=== PATIENT | female | born 1940 | race Caucasian/White ===

== ENCOUNTER → 2016-11-27 15:42 | Outpatient (CLI) | payer OTHER | END | disposition home or self-care (01) | LOC: D.CT 15:42 | DX: J18.9 Pneumonia, unspecified organism (principal) ==

== ENCOUNTER → 2017-08-01 09:21 | Outpatient (CLI) | payer MEDICARE ==
--- NOTE | ~2017-08-01 | EC ---
PATIENT:GIOVANNY ROGERS DATE OF SERVICE: 08/01/17 SEX: F MEDICAL RECORD: [id number] DATE OF : 38 [facility] AGE OF PATIENT: 77 ADMISSION DATE: 08/01/17 REFERRING PHYSICIAN: INTERPRETING PHYSICIAN: JAMAR MCMAHON MD ECHOCARDIOGRAM REPORT ECHO CHARGES 4 ECHO COMPLETE CLINICAL DIAGNOSIS: HTN/CAROTID BRUIT ECHOCARDIOGRAPHIC MEASUREMENTS (adult normal given) AC root (d.<3.7cm) 4.1 cm LV Septum d (<1.2 cm> 1.9 cm Valve Excursion 1.3 cm LV Septum (systole) 2.0 cm Left Atria (s.<4.0cm> 3.9 cm LVPW d(<1.2cm) 1.8 cm RV (d.<2.3cm) 3.3 cm LVPW (sytole) 2.0 cm LV diastole(<5.6CM) 5.0 cm MV E-F(>70mm/sec) cm LV systole 2.9 cm LVOT Diameter 1.3 cm MV exc.(>10mm) 1.4 cm Est.ejection fraction (50-75%) % Pericardial Effusion N DOPPLER: LVIT cm/sec A 112 cm/sec E 69.0 cm/sec LA cm/sec RVSP 50 mmHg LVOT 133 cm/sec AOP1/2T m/s Asc. Ao 160 cm/sec RVOT 120 cm/sec RA cm/sec PA 161 cm/sec AV Gradient Peak 10.28mmHg AV Mean 5.53 mmHg AV Area 1.2 cm MV Gradient Peak 6.36 mmHg MV Mean 1.42 mmHg MV Area cm COMMENTS: Chief Pilot: Willian FAY Party Director: 2 Dr. Nunn TAPE# PACS DATE OF SERVICE: 08/01/2017 Adequate 2-D echo, color flow and spectral Doppler, and M-mode. LVH is present. LV internal dimensions are normal. Wall motion is normal. EF greater than or equal to 55%. Aortic valve is tricuspid. No evidence of stenosis by Doppler interrogation. The left atrium is normal at 3.9 cm. Mitral valve shows no prolapse. Trace MR. Right-sided chamber is normal. Mild TR. Incidental note is made of moderate air band in RV apex of no clinical significance. ECHOCARDIOGRAM REPORT [id number] GIOVANNY ROGERS TRANSINT:[id number] Voice Confirmation ID: [id number] DOCUMENT ID: [id number] JAMAR MCMAHON MD at 1030 CC: [id number] DICTATION DATE: 08/01/17 164 HYDRAULIC PRESS IN OPERATOR: 08/01/17 2258 DEP CLI 08/01/17 [place] [id number] [place] [id number]
== END | disposition home or self-care (01) ==
LOC: D.ECHO 09:21
DX: I65.23 Occlusion and stenosis of bilateral carotid arteries (principal); I10 Essential (primary) hypertension

== ENCOUNTER 2018-08-28 08:55 | Outpatient (CLI) | payer MEDICARE ==
[~2018-08-28] VITALS: Ht 162.6 cm; Wt 71.4 kg
--- NOTE | ~2018-08-28 | HEMODYNAMI ---
PATIENT:GIOVANNY ROGERS MEDICAL RECORD: [id number] : 38 LOCATION:[facility] ADMISSION DATE: 08/28/18 Generatedon:08/28/201812:16 Patient name: GIOVANNY ROGERS Patient #: [id number] SSN: : 1940 Date of study: 08/28/2018 Page: Of Hemodynamic Procedure Report Patient Data Patient Demographics Procedure consent was obtained First Name: GIOVANNY Gender: Female Last Name: SUE : 1940 [facility] Initial: L Age: 78 year(s) Patient #: [id number] Race: Additional ID: [id number] Contact details [address]: [address] [place] [address] rd State: [place] City: [place] Zip code: [address] Past Medical History Allergies: No known allergies Admission Admission Data Admission Date: 08/28/2018 Admission Time: 8:55 Lab Results Lab Result Date: 08/28/2018 Lab Result Time: 0:00 Biochemistry Name Units Result Min Max BUN mg/dl 23 --(----)-* 7 18 Creatinine mg/dl 1.3 --(---*)-- 0.6 1.3 CBC Name Units Result Min Max Hemoglobin g/dl 13.3 -*(----)-- 13.5 17.5 Procedure Procedure Types Cath Procedure Diagnostic Procedure [facility] w/Coronaries PCI Procedure Coronary Stent Coronary Stent Initial Coronary Stent Additional Procedure Description Procedure Date Procedure Date: 08/28/2018 Procedure Start Time: 11:52 Procedure End Time: 12:16 Procedure Staff Name Function Alejandro Alvarenga MD Performing Physician David Amaya RT Monitor Yesy Bowen RT Scrub Helio Ojeda RN Nurse Procedure Data Cath Procedure Fluoroscopy Diagnostic fluoroscopy Total fluoroscopy Time: 7.6 time: 7.6 min min Diagnostic fluoroscopy Total fluoroscopy dose: 905 dose: 905 mGy mGy Contrast Material Contrast Material Type Amount (ml) Isovue 300 87 Entry Location Entry Primary Successful Side Size Upsize Upsize Entry Closure Anders ccessful Closure Location (Fr) 1 (Fr) 2 (Fr) Remarks Device Remarks Radial Right 6 Fr Mechanical artery Short Compression Estimated blood loss: 15 ml Diagnostic catheters Device Type Used For End Catheter Placement DIAGNOSTIC Richton 110cm 5 Procedure Fr catheter ([id number]) Procedure Medications Medication Administration Route Dosage 0.9% NaCl I.V. 100 ml/hr Oxygen etCO2 Nasal cannula 2 l/min Heparin Flush Bag added to field 2 bags (1000units/500ml NS) Lidocaine 2% added to field 20 Radial Cocktail added to field (Verapomil 2mg/Nitro 400mcg/Heparin 1500units) Versed I.V. 1 mg Fentanyl I.V. 25 mcg Radial Cocktail I.A. 1 syringe (Verapomil 2mg/Nitro 400mcg/Heparin 1500units) Fentanyl I.V. 25 mcg Heparin Bolus I.V. 4000 units Hemodynamics Rest HGB: 13.3 (g/dl) Heart Rate: 54 (bpm) Pressure Samples Time Site Value (mmHg) Purpose Heart Use Rate(bpm) 11:56 LV 59/0,-3 Snapshot 82 Snapshots Pre Cath Intra NCS Post Cath Vital Signs Time Heart Resp SPO2 etCO2 NIBP Rhythm Pain Sedation Rate (ipm) (%) (mmHg) (mmHg) Status Level (bpm) 11:38:41 54 20 92 0 132/74(90) NSR 0 (11) 10(A) , No pain 11:42:51 53 24 95 25.5 127/68(92) NSR 0 (11) 10(A) , No pain 11:47:01 52 18 96 16.5 121/64(93) NSR 0 (11) 10(A) , No pain 11:51:11 54 13 94 16.5 139/60(94) NSR 0 (11) 10(A) , No pain 11:55:27 60 16 94 27 101/58(76) NSR 0 (11) 10(A) , No pain 11:59:29 61 23 92 31.5 106/61(80) NSR 0 (11) 10(A) , No pain 12:03:32 58 13 93 24.7 119/56(75) NSR 0 (11) 9(A) , No pain 12:07:40 58 13 94 29.3 115/56(82) NSR 0 (11) 9(A) , No pain 12:12:06 59 16 94 33.8 124/60(82) NSR 0 (11) 9(A) , No pain Medications Time Medication Route Dose Verified Delivered Reason Not es Effectiveness by by 11:42:37 0.9% NaCl I.V. 100 Helio Helio Per physician ml/hr Rusty Ojeda RN RN 11:42:46 Oxygen etCO2 2 l/min Helio Helio for low 02 sats Nasal Rusty Ojeda cannula RN RN 11:42:56 Heparin Flush added 2 bags Helio Helio used for Bag to Lorjorge Ojeda procedure (1000units/500ml RN RN NS) 11:43:05 Lidocaine 2% added 20ml Helio Helio used for to vial Lorigan Lorjorge procedure field ROCHA RN 11:43:19 Radial Cocktail added Helio Helio used for (Verapomil to Lorigan Rusty procedure 2mg/Nitro field AJ ROCHA 400mcg/Heparin 1500units) 11:46:08 Versed I.V. 1 mg Helio Helio for sedation Rusty Ojeda RN RN 11:46:16 Fentanyl I.V. 25 mcg Helio Helio for sedation Rusty Ojeda RN RN 11:54:25 Radial Cocktail I.A. 1 Helio Alejandro for (Verapomil syringe Rusty Alvarenga MD vasodilation 2mg/Nitro RN 400mcg/Heparin 1500units) 11:54:57 Fentanyl I.V. 25 mcg Helio Helio for sedation Rusty Ojeda RN RN 12:01:33 Heparin Bolus I.V. 4000 Helio Helio for units Rusty Ojeda anticoagulation AJ bearing inspector Log Time Note 11:10:14 Informed consent obtained and on chart 11:10:27 Diagnostic Cath Status : Elective 11:10:55 Helio Ojeda RN sent for patient. Start room use. 11:10:58 Time tracking: Regular hours (M-F 7:00 - 5:00) 11:11:03 Plan of Care:Hemodynamics will remain stable., Cardiac rhythm will remain stable., Comfort level will be maintained., Respiratory function will remain adequate., Patient/ family verbilizes understanding of procedure., Procedure tolerated without complication., Recovers from procedure without complications.. 11:16:15 Patient received from Pre/Post Procedure Room to [facility] 2 Alert and oriented. Tansferred to table in Supine position. 11:16:17 Warm blankets applied, and sonny hugger turned on for patient comfort. 11:16:17 Correct patient and procedure confirmed by team. 11:25:57 ECG and BP/O2 sat monitors applied to patient. 11:25:58 Vital chart was started 11:25:59 Baseline sample Acquired. 11:26:08 Rhythm: sinus bradycardia 11:26:09 Full Disclosure recording started 11::19 H&P Date Dictated: 08/28/2018 New H&P dictated by physician.. 11:26:20 Pre-procedure instructions explained to patient. 11:26:21 Pre-op teaching completed and patient verbalized understanding. 11:26:23 Family in waiting room. 11:26:27 Patient NPO since Midnight. 11:26:40 Patient allergic to No known allergies 11:26:46 Is patient on blood thinner?Yes 11:26:49 ACC The patient was administered the following blood thiners within the last 24 hours: ACCPlavix 11:29:25 Patient diabetic? No. 11:29:28 Patient not . Patient is over age 55. 11:29:29 ----Pre-sedation anethsthesia assessment.---- 11:29:31 Previous problem with sedation/anesthesia? No ? 11:29:33 Snore? Yes 11:29:34 Sleep apnea? No 11:29:36 Deviated septum? No 11:29:37 Opens mouth fully? Yes 11:29:38 Sticks out tongue? Yes 11:29:59 Airway obstruction? No HAS ASTHMA 11:30:31 Dentures? Yes PARTIAL IS IN 11:30:37 Pre procedure: right dorsailis pedis pulse 2+ Normal; easily identifiable; not easily obliterated 11:31:03 Patient pain scale 0/10 ?. 11:31:15 IV left hand D/C'd due to infiltration. 11:33:42 Lab Result : BUN 23 mg/dl 11:33:42 Lab Result : Creatinine 1.3 mg/dl 11:33:42 Lab Result : Hemoglobin 13.3 g/dl 11:33:47 Lab results completed and on chart. 11:33:53 Right Radial & Right Groin area was prepped with chlora-prep and aped in sterile fashion 11:33:55 Alarms reviewed by R. N. 11:33:56 Sharps counted by scrub and verified by R.N. 11:36:41 IV started by Helio Ojeda RN inleft hand with a 22 gauge IV catheter with 0.9% NaCl at KVO. 11:41:34 Zero performed for pressure channel P1 11:42:37 0.9% NaCl 100 ml/hr I.V. was administered by Helio Ojeda RN; Per physician; 11:42:46 Oxygen 2 l/min etCO2 Nasal cannula was administered by Helio Ojeda RN; for low 02 sats; 11:42:56 Heparin Flush Bag (1000units/500ml NS) 2 bags added to field was administered by Helio Ojeda RN; used for procedure; 11:43:05 Lidocaine 2% 20ml vial added to field was administered by Helio Ojeda RN; used for procedure; 11:43:19 Radial Cocktail (Verapomil 2mg/Nitro 400mcg/Heparin 1500units) added to field was administered by Helio Ojeda RN; used for procedure; 11:44:01 Use device set Radial Dx or PCI 11:44:03 ACIST Syringe (35577) opened to sterile field. 11:44:03 Medline Cath Pack ([id number]) opened to sterile field. 11:44:04 Bag Decanter (2002) opened to sterile field. 11:44:04 DIAGNOSTIC WIRE .035 260cm J wire (979499) opened to sterile field. 11:44:05 ACIST Hand Control (44033) opened to sterile field. 11:44:06 ACIST Manifold (28067) opened to sterile field. 11:44:07 Tegaderm 4 x 4 (1626W) opened to sterile field. 11:44:07 MBrace Wrist Support ([id number]) opened to sterile field. 11:44:09 SHEATH 6FR Slender (47-1060) opened to sterile field. 11:45:20 Physician arrived 11:45:20 --------ALL STOP TIME OUT------ 11:45:21 Final Timeout: patient, procedure, and site verified with staff and physician. All members of the team are in agreement. 11:45:24 Right Radial & Right Groin site verified by team. 11:45:32 Maximum allowable Isovue 300 dose 300ml. Physician notified. (300ml for normal creatinines. For patients with creatinine of 1.7 or higher multiply weight(kg) x 5 divided by creatinine.) 11:45:38 Fire Safety Assessment: A--An alcohol-based skin anteseptic being used preoperatively., C--Open oxygen or nitrous oxide is being used., D--An ESU, laser, or fiber-optic light is being used. 11:45:45 Physical assessment completed. ASA score P 2 - A patient with mild systemic disease as per Alejandro Alvarenga MD. 11:45:51 Sedation plan: IV Moderate Sedation Medication:Versed, Fentanyl 11:46:08 Versed 1 mg I.V. was administered by Helio Ojeda RN; for sedation; 11:46:16 Fentanyl 25 mcg I.V. was administered by Helio Ojeda RN; for sedation; 11:52:14 Procedure started. 11:52:20 Local anesthetic to right radial artery with Lidocaine 2% by Alejandro Alvarenga MD.INITIAL ACCESS ONLY 11:53:16 A 6 Fr Short sheath was inserted into the Right Radial artery 11:53:25 A DIAGNOSTIC Richton 110cm 5 Fr catheter (062903) was advanced over the wire and used for Procedure. 11:54:25 Radial Cocktail (Verapomil 2mg/Nitro 400mcg/Heparin 1500units) 1 syringe I.A. was administered by Alejandro Alvarenga MD; for vasodilation; 11:54:57 Fentanyl 25 mcg I.V. was administered by Helio Ojeda RN; for sedation; 11:56:20 LV hemodynamics recorded. 11:56:26 LV gram done using CORNELIUS 11:56:32 EF : 70 % 11:57:00 RCA angiography performed. 11:57:52 Catheter removed. 11:58:13 GUIDE 6FR EBU 3.0 catheter ([id number]) opened to sterile field. 11:58:33 6 Fr EBU 3.0 guide catheter was inserted over the wire 11:59:25 CHOICE PT Extra Support 182cm wire ([id number]) opened to sterile field. 11:59:26 INFLATOR Merit BasixCompak (DY6905) opened to sterile field. 12:00:42 LAD AND DIAGONAL 12:01:02 CHOICE PT Extra Support 182cm wire (1126979T7) opened to sterile field. 12:01:33 Heparin Bolus 4000 units I.V. was administered by Helio Ojeda RN; for anticoagulation; 12:01:55 Guide Catheter removed. unable to cannulate vessel. 12:02:10 GUIDE 6FR XBLAD 3.5 catheter ([id number]) opened to sterile field. 12:02:22 6 Fr XBLAD 3.5 guide catheter was inserted over the wire 12:03:26 1ST CHOICE wire advanced. 12:03:33 LAD 12:03:54 2ND CHOICE wire advanced. 12:04:04 DIAGONAL 12:05:21 Place stent Inflation Number: 1 A YESENIA RX 3.0 x 08 stent ([id number]) was prepped and advanced across the 1st Diag. The stent was deployed at 17 DEE DEE for 0:10 (min:sec). 12:05:31 Stent catheter was removed intact over wire. 12:05:32 Wire removed. 12:06:10 Stent balloon re-inserted over wire. 12:06:38 Stent catheter was removed intact over wire. 12:08:04 Inflate balloon Inflation number: 1 A EUPHORA 2.5 x 10 Balloon ([id number]) was prepped and advanced across the Prox LAD, then inflated to 21 DEE DEE for 0:10 (min:sec). 12:09:12 Balloon removed over the wire. 12:09:40 Place stent Inflation Number: 2 A YESENIA RX 3.0 x 08 stent ([id number]) was prepped and advanced across the Prox LAD. The stent was deployed at 17 DEE DEE for 0:10 (min:sec). 12:10:18 Stent catheter was removed intact over wire. 12:10:18 Wire removed. 12:10:20 Guide catheter removed. 12:10:29 TR BAND Standard ([id number]) opened to sterile field. 12:11:03 Procedure type changed to Cath procedure, Diagnostic procedure, LHC, LHC w/Coronaries, PCI procedure, Coronary Stent, Coronary Stent Initial, Coronary Stent Additional 12:12:00 Sheath removed intact; hemostasis achieved with Mechanical Compression to the Right Radial artery. 12:12:03 Procedure ended.(Physican Out) 12:12:13 Fluoroscopy time 07.60 minutes. 12:12:19 Fluoroscopy dose: 905 mGy 12:12:19 Flurop Dose total: 905 12:12:25 Contrast amount:Isovue 300 87ml. 12:12:33 Sharps counted by scrub and verified by R.N. 12:13:50 TR band inflated with 10cc of air. 12:13:53 Insertion/operative site no bleeding no hematoma. 12:13:58 Post right radial artery:stable 12:14:03 Post-procedure physical assessment completed. ASA score P 2 - A patient with mild systemic disease as per Alejandro Alvarenga MD. 12:14:08 Post procedure rhythm: sinus bradycardia 12:14:13 Estimated blood loss: 15 ml 12:14:16 Patient needs reinforcement of post procedure teaching. 12:15:36 Procedure and supply charges have been captured, reviewed, submitted and are correct. 12:15:51 Vital chart was stopped 12:15:52 See physician's report for complete and final results. 12:15:57 Report given to Pre/Post Procedure Room. 12:16:00 Patient transfered to Pre/Post Procedure Room with Stretcher. 12:16:03 Procedure ended. 12:16:03 Full Disclosure recording stopped 12:16:07 End room use (Document Last) Intervention Summary Intervention Notes Time ActionType Lesion and Equipment Used Action# Pressure Duration Attributes 12:05:21 Place stent 1st Diag YESENIA RX 3.0 x 1 17 00:10 08 stent ([id number]) 12:08:04 Inflate Prox LAD EUPHORA 2.5 x 1 21 00:10 balloon 10 Balloon ([id number]) 12:09:40 Place stent Prox LAD YESENIA RX 3.0 x 2 17 00:10 08 stent ([id number]) Device Usage Item Name Manufacture Quantity Catalog Number Hospital Part Current M inimal Lot# / Charge Number Stock Stock Serial# Code ACIST Syringe Acist 1 49718 693090 495396 996552 2 0 (43002) Medical Systems Inc Medline Cath Medline 1 [id number] 990748 72641 265629 5 Pack ([id number]) Bag Decanter Microtek 1 581594 97361 183887 5 () Medical Inc. DIAGNOSTIC St Ayad 1 692282 785282 133266 533060 3 0 WIRE .035 260cm J wire (139018) ACIST Hand Acist 1 57965 523209 828434 784984 5 Control Medical (95876) Systems Inc ACIST Manifold Acist 1 12096 282422 354595 949940 5 (98395) Medical Systems Inc Tegaderm 4 x 4 3M 1 1626W 830468 865711 557160 5 (1626W) MBrace Wrist Advanced 1 140-0250-00 027182 12019 494406 5 Support Vascular ([id number]) Dynamics SHEATH 6FR Terumo 1 [id number] 102493 185464 901825 5 Slender (80-1060) DIAGNOSTIC Terumo 1 40-7923 919844 968728 687046 5 Richton 110cm 5 Fr catheter (053205) GUIDE 6FR EBU Medtronic 1 [id number] 283915 70778 123077 0 3.0 catheter ([id number]) CHOICE PT [place] 2 [id number] 947748 376549 432936 5 Extra Support Scientific 182cm wire ([id number]) INFLATOR Merit Merit 1 GL6858 153073 964050 607504 1 5 Supercircuits Medical (UT2684) GUIDE 6FR Cardinal 1 69578648 059315 617285 780955 1 0 XBLAD 3.5 Health catheter ([id number]) YESENIA RX 3.0 x Medtronic 2 [id number] 580418 1245062 245899 5 [id number] 08 stent [id number] ([id number]) EUPHORA 2.5 x Medtronic 1 [id number] 365726 570553 692152 5 [id number] 10 Balloon ([id number]) TR BAND Terumo 1 [id number] 352729 183918 598987 4 0 Standard ([id number]) Signature Audit [place] Stage Time Signature Unsigned Intra-Procedure 08/28/2018 David Amaya 12:16:24 PM RT(R) (CV) Signatures Monitor : David Amaya RT Signature : Date : Time : [facility] [address] [place] [address]
[2018-08-28 09:23] VITALS: BP 124/51; Ht 162.6 cm; Wt 71.4 kg
[2018-08-28] MEDS ORDERED: FENOFIBRATE160 MG PO (09:28)
[2018-08-28] MEDS ORDERED: AVAPRO150 MG PO (09:28)
[2018-08-28] MEDS ORDERED: PAXIL20 MG PO (09:28)
[2018-08-28] MEDS ORDERED: NITROQUICK0.4 MG SL (09:28)
[2018-08-28] MEDS ORDERED: PLAVIX75 MG PO (09:28)
[2018-08-28] MEDS ORDERED: SYNTHROID88 MCG PO (09:28)
[2018-08-28] MEDS ORDERED: COREG6.25 MG PO (09:32)
[2018-08-28] MEDS ORDERED: LIPITOR80 MG PO (09:32)
[2018-08-28] MEDS ORDERED: LASIX20 MG PO (09:33)
[2018-08-28] MEDS ORDERED: ISOSORBIDE MONO60 M1 PO (09:33)
[2018-08-28] MEDS ORDERED: K-DUR20 MEQ PO (09:34)
[2018-08-28] MEDS ORDERED: PROTONIX40 MG PO (09:34)
[2018-08-28 09:43] LABS: HEMATOCRIT 40.7 % (36.0-48.0); HEMOGLOBIN 13.3 g/dL (12-16); LYMPHOCYTES 32.4 % (15-50); MCH 29.3 pg (26.0-34.0); MCHC 32.7 g/dL (31.0-37.0); MCV 89.6 fL (80.0-100.0); MEAN PLATELET VOLUME 10.1 fL (7.4-10.4); NEUTROPHILS 55.4 % (40-80); PLATELET COUNT 215 10x3/uL (130-400); RBC 4.54 10x6/uL (4.00-5.40); RDW 14.6 % (11.5-14.5)
[2018-08-28 10:01] LABS: ANION GAP 10.8 mmol/L (8-16); CALCIUM 10.1 mg/dL (8.5-10.1); CARBON DIOXIDE 32.2 mmol/L (21.0-32.0); CREATININE - SERUM 1.3 mg/dL (0.6-1.3)
[2018-08-28] MEDS ORDERED: ASPIRIN81 MG PO (12:24)
--- NOTE | 2018-08-28 12:25 | NUR ---
RECIEVED TO ROOM VIA STRETCHER FROM OUTREACH ASSISTANT WITH TR BAND TO R/WRIST CDI NO BLEEDING OR HEMATOMA NOTED. PATIENT DENIED CHEST PAIN ON ARRIVAL WITH R/HAND WARM TO TOUCH AND CAP REFILL BRISK.
--- NOTE | 2018-08-28 12:45 | NUR ---
TR BAND TO R/WRIST IS CDI NO BLEEDING OR HEMATOMA NOTED. PATINET DENIED CHEST PAIN AT THIS TIME. HR57 BP 124/50 INSTRUCTED PATIENT TO KEEP RUE STRAIGHT NO BENDING OR FLEXING OF WRIST
--- NOTE | 2018-08-28 12:54 | NUR ---
DR AGUIRRE AT BEDSIDE NO NEW ORDERS RECIEVED. TR BAND REMAINS CDI WITH CHEST PAIN DENIED
--- NOTE | 2018-08-28 13:30 | NUR ---
PT ALERT, DENIES ANY C/O. VSS. TR BAND IS CDI, FINGERS WARM AND CAP REFILL IS BRISK. DR AGUIRRE STATES FOR PT TO FOLLOW UP WITH DR PENNINGTON, ATTEMPTED TO MAKE APPOINTMENT FOR 1 MONTH FOLLOW UP BUT THAT OFFICE IS CLOSED FOR THE DAY. PT AND FAMILY VEBALIZE UNDERSTANDING TO CALL OFFICE FRIDAY TO SCHEDULE A 1 MONTH FOLLOW UP APPOINTMENT.
--- NOTE | 2018-08-28 14:08 | NUR ---
PT ANA M SANDWICH WITH NO C/O. TR BAND IS CDI, FINGERS WARM WITH BRISK CAP REFILL. FAMILY AT BEDSIDE, VSS.
--- NOTE | 2018-08-28 14:33 | NUR ---
PT SITTING UP IN BED, VISITING WITH FAMILY. TR ABND CDI, FINGERS WARM SINUS KASANDRA AT 49, PT DENIES ANY C/O CHEST PAIN. CALL LIGHT IN REACH.
--- NOTE | 2018-08-28 15:03 | HP ---
PATIENT: GIOVANNY SULLIVAN MEDICAL RECORD: [id number] ACCOUNT: [id number] LOCATION:[facility] : 38 ADMISSION DATE: 08/28/18 PCP: OBINNA CRUZ MD HISTORY AND PHYSICAL EXAMINATION DIAGNOSES: 1. Unstable angina. 2. Coronary artery disease. 3. Previous PTCA and stent. 4. Peripheral vascular disease. HISTORY OF PRESENT ILLNESS: Ms. Sullivan has a past history of coronary artery disease, previous cardiac stenting. She is followed by Dr. Goodwin for peripheral vascular disease. She conveyed to Dr. Goodwin she has been having increasing episodes of chest pain and chest discomfort compatible with angina. She is now brought for cardiac catheterization. PHYSICAL EXAMINATION: GENERAL APPEARANCE: Well-nourished, well-developed, appears stated age. Level of distress, comfortable. PSYCHIATRIC: Mental status, alert, normal affect. Orientation, oriented to time, place and person. EYES: Lids and conjunctiva, noninjected. No discharge, no pallor. ENT: Lips, teeth, gums, normal dentition. Oropharynx, no cyanosis, no pallor. NECK: Carotid arteries, bilateral normal upstroke, no bruits, no thrills. JUGULAR VEINS: No jugular venous pressure or distention. CERVICAL LYMPH NODES: Nontender, nonenlarged. THYROID: Not enlarged. Nontender. No nodules. LUNGS: Respiratory effort, unlabored. CHEST: Normal curvature. No thoracic deformity. No chest wall tenderness. Percussion, resonant. Auscultation, clear. No wheezes, no rales, no rhonchi. CARDIOVASCULAR: Precordial exam, nondisplaced. No heaves or pericardial thrills. Rate and rhythm, regular. Heart sounds, normal S1, normal S2. No S3, no gallop, no rub. Systolic murmur, not heard. Diastolic murmur, not heard. EXTREMITIES: No cyanosis, no edema. Peripheral pulses, full and equal in all extremities, except as noted. No bruits appreciated. ABDOMEN: Soft, nondistended. Normal aorta. No bruit. Nontender. No masses. Liver, nontender, no hepatomegaly. Spleen, nontender, no splenomegaly. MUSCULOSKELETAL: No joint tenderness. No joint swelling. No erythema. NEUROLOGICAL: Normal gait, normal strength, normal tone. SKIN: Warm and dry. OVERALL IMPRESSION: Unstable angina and a past history of coronary artery disease, most likely she has recurrent hemodynamically significant disease. We will proceed with coronary angiography. Further care depends on the findings of the angiography. TRANSINT:[id number] Voice Confirmation ID: [id number] DOCUMENT ID: [id number] HISTORY AND PHYSICAL [id number] GIOVANNY SULLIVAN JEFFREY MD at 1503 CC: [id number] DICTATION DATE: 08/28/1858 COPYRIGHT MANAGER: 08/28/18 0907 [facility] [address] [place] [address]
--- NOTE | 2018-08-28 15:03 | OP ---
PATIENT NAME: GIOVANNY ROGERS MEDICAL RECORD: [id number] :38 LOCATION:[facility] ADMISSION DATE: SURGEON: LUBA AGUIRRE MD DATE OF OPERATION: 08/28/2018 PROCEDURES: 1. PTCA stent LAD. 2. PTCA stent, LAD diagonal. 3. Left heart catheterization. 4. Selective coronary angiography. 5. Left ventriculogram. INDICATION: Angina and coronary artery disease. PROCEDURE IN DETAIL: After informed consent was obtained and after a detailed description of risks, benefits as well as alternative therapies, the patient elected to proceed with angiogram and angioplasty. The right radial area was prepped and draped in normal sterile fashion. Right radial artery was cannulated via modified Seldinger technique with placement of 6-Frisian sheath. All catheters exchanged through this sheath. FINDINGS: The left ventriculogram was performed in standard 30-degree CORNELIUS view, reveals good cardiac wall motion throughout all segments. Overall ejection fraction estimated at 55%. SELECTIVE CORONARY ANGIOGRAPHY: 1. Left main has no significant angiographic disease. 2. Left anterior descending has previously placed stents in the LAD and the diagonal; however, these do not go to the ostium of the diagonal or the takeoff of the diagonal and the LAD. There is 80% stenosis in both vessels just proximal to the previously placed stents. 3. The left circumflex has moderate irregularities, but no flow-limiting stenosis. 4. Right coronary artery has moderate irregularities, but no flow-limiting stenosis. PTCA STENT OF THE LAD AND DIAGONAL: Both vessels were addressed with a 3.0 x 9 mm Tenzin stent. Result was 0% residual stenosis. OVERALL IMPRESSION: Successful percutaneous transluminal coronary angioplasty stent of the left anterior descending and diagonal, both going from 80% initial stenosis to 0% residual. TRANSINT:[id number] Voice Confirmation ID: [id number] DOCUMENT ID: [id number] LUBA AGUIRRE MD at 1503 CC: [id number] DICTATION DATE: 08/28/18 1214 SKI BASE TRIMMER: 08/28/18 1258 [facility] [address] [place] [address]
--- NOTE | 2018-08-28 16:22 | NUR ---
1515 4 CC OF AIR WEANED FROM TR BAND WITH NO BLEEDING NOTED. FINGERS WARM AND CAP REFILL IS BRISK. PT IS ALERT AND DENIES ANY C/O. 1535 4 CC OF AIR WEANED FROM TR BAND WITH NO BLEEDING NOTED.
--- NOTE | 2018-08-28 16:30 | NUR ---
1600 ALL REMAINING AIR WEANED FROM TR BAND WITH NO BLEEDING NOTED. IV DC'D WTIH CATH INTACT. DC INSTRUCTIONS REVIEWED WITH PT AND WHO VERBALIZE UNDERSTANDING. PT VOIDED QS USING BEDPAN. 1620 PT ASSISTED WITH DRESSING FOR DC BY NURSE. 2X2 AND TEGADERM CDI TO CATH SITE. WRIST IMMOBILIZER IN PLACE. PT ESCORTED TO PRIVATE AUTO VIA WC BY NURSE WITH DRIVING HER HOME.
== END 2018-08-28 16:20 | disposition home or self-care (01) ==
LOC: D.CATH 08:55
PROVIDERS: ATTEND Internal Medicine Interventional Cardiology
DX: I25.119 Atherosclerotic heart disease of native coronary artery with unspecified angina pectoris (principal); Z01.812 Encounter for preprocedural laboratory examination
CPT/HCPCS: 93458; C9600; C9601